=== PATIENT | male | born 1950 | race Caucasian/White ===

== ENCOUNTER 2017-08-03 19:32 | Emergency (ER) | payer MEDICARE ==
[~2017-08-03] VITALS: Ht 182.9 cm; Wt 94.9 kg
[2017-08-03 19:38] VITALS: BP 148/77; PULSE 75; RESP 20; TEMP 98.4; O2SAT 95
[2017-08-03] MEDS ORDERED: VENTAER INH (19:58)
[2017-08-03] MEDS ORDERED: CETI10CA3 PO (19:58)
[2017-08-03] MEDS ORDERED: [UNRECOGNIZED DRUG - CODE] (19:58)
--- NOTE | 2017-08-03 20:40 | PD ---
HPI Chief Complaint: Cold / Flu Symptoms Time Seen by Provider: 20:13 Travel History International Travel<30 days: No Contact w/Intl Traveler<30days: No Traveled to known affect area: No History of Present Illness HPI 66-year-old male complains coughing wheezing and shortness of breath. Patient started with nasal congestion and sinus pressure 4 days ago. Patient started having wheezing, dry cough and shortness of breath subsequently. Patient has history of asthma and has inhaler at home. Patient denies any chest pain. Patient states that he has low-grade fever at home. Patient denies any nausea vomiting diarrhea. PFSH Past Medical History Asthma: Yes Diminished Hearing: Yes Immunizations Current: Yes Tetanus Vaccination: < 5 Years Influenza Vaccination: Yes Social History Alcohol Use: Yes (DAILY, 1-2 BEERS) Tobacco Use: No Substance Use: No Allergies-Medications (Allergen,Severity, Reaction): Coded Allergies: No Known Allergies (Unverified , 08/03/17) Reported Meds & Prescriptions Reported Meds & Active Scripts Active Reported [Ics-Inh] Ventolin Hfa 18 GM Inh (Albuterol Sulfate) 90 Mcg/Act Aer 2 Puff INH Q4-6H PRN Zyrtec (Cetirizine HCl) 10 Mg Capsule 10 Mg PO DAILY Review of Systems General / Constitutional: No: Fever Eyes: No: Visual changes HENT: No: Headaches Cardiovascular: No: Chest Pain or Discomfort Respiratory: Positive: Cough, Shortness of Breath, Wheezing Gastrointestinal: No: Abdominal Pain Genitourinary: No: Dysuria Musculoskeletal: No: Pain Skin: No Rash Neurologic: No: Weakness Psychiatric: No: Depression Endocrine: No: Polydipsia Hematologic/Lymphatic: No: Easy Bruising Physical Exam Narrative GENERAL: Well-nourished, well-developed patient. SKIN: Focused skin assessment warm/dry. HEAD: Normocephalic. EYES: No scleral icterus. No injection or drainage. NECK: Supple, trachea midline. No JVD or lymphadenopathy. CARDIOVASCULAR: Regular rate and rhythm without murmurs, gallops, or rubs. RESPIRATORY: Breath sounds equal bilaterally. No accessory muscle use. Patient has moderate expiratory wheezes bilaterally. No rhonchi. GASTROINTESTINAL: Abdomen soft, non-tender, nondistended. MUSCULOSKELETAL: No cyanosis, or edema. BACK: Nontender without obvious deformity. No CVA tenderness. Neurologic exam normal. Data Data Last Documented VS Vital Signs Date Time Temp Pulse Resp B/P (MAP) Pulse Ox O2 Delivery O2 Flow Rate FiO2 08/03/17 19:54 75 20 95 Room Air 08/03/17 19:38 98.4 148/77 (100) Orders Orders Chest, Single Ap (08/03/17 20:37) Albuterol-Ipratropium Neb (Duoneb Neb) (08/03/17 20:45) Dexamethasone Inj (Decadron Inj) (08/03/17 20:45) MDM Medical Decision Making Medical Screen Exam Complete: Yes Emergency Medical Condition: Yes Differential Diagnosis Differential diagnosis including acute exacerbation of asthma, bronchitis, pneumonia. Narrative Course 66-year-old male with coughing congestion and wheezing. History of asthma. Albuterol with Atrovent unit dose treatment 3. Decadron 8 mg IM. Zithromax 500 mg p.o. given. Diagnosis Primary Impression: Acute severe exacerbation of asthma Additional Impression: Bronchitis Patient Instructions: General Instructions Additional Instructions: Continue albuterol inhaler as needed. Zithromax as directed. Follow-up with personal physician. Return if worse. Med/Other Pt SpecificInfo: Prescription(s) given Scripts Prednisone (Prednisone) 20 Mg Tab 20 MG PO DAILY, #6 TAB 0 Refills Prov: Daniel Manning MD 08/03/17 Azithromycin (Zithromax Z-Pasha) 250 Mg Dspk 250 MG PO DIRECTED for Infection, #1 DSPK 0 Refills 500 MG (2 tabs) day 1, then 1 tab days 2-5. Prov: Daniel Manning MD 08/03/17 Disposition: 01 DISCHARGE HOME Condition: Stable Daniel Manning MD Aug 03, 2017 20:40
[2017-08-03] MEDS ORDERED: DEXAMETHASONE SOD PHOS 4 MG/ML VIAL IM ONE (20:45)
[2017-08-03] MEDS: RESP: ALBUTEROL 2.5 MG/IPRATROPIUM 0.5 MG NEB (SCH) INH ×3 (21:23→21:40)
[2017-08-03] MEDS ORDERED: PRED20 PO (21:41)
[2017-08-03] MEDS ORDERED: ZITHTAB PO (21:41)
[2017-08-03] MEDS ORDERED: AZITHROMYCIN 250 MG TAB PO ONE (21:45)
--- NOTE | 2017-08-03 21:52 | RADRPT ---
EXAM DATE/TIME: 08/03/2017 20:50 [facility] COMPARISON: No previous studies available for comparison. INDICATIONS : Chest congestion and shortness of breath. MEDICAL HISTORY : None. SURGICAL HISTORY : None. ENCOUNTER: Initial ACUITY: 4 - 6 days PAIN SCORE: 0/10 LOCATION: Bilateral chest FINDINGS: A single view of the chest demonstrates the lungs to be symmetrically aerated without evidence of mas s, infiltrate or effusion. The cardiomediastinal contours are unremarkable. Osseous structures are intact. CONCLUSION: No acute disease. Juan Jose Villa MD on August 03, 2017 at 21:50 Board Certified Radiologist. This report was verified electronically.
== END 2017-08-03 22:03 | disposition home or self-care (01) ==
LOC: PHED 19:32
DX: J45.901 Unspecified asthma with (acute) exacerbation (principal); Z79.899 Other long term (current) drug therapy
CPT/HCPCS: 71045; 94640; 94664; 96372; 99284; J1100

== ENCOUNTER 2017-08-10 14:27 | Emergency (ER) | payer MEDICARE ==
[~2017-08-10] VITALS: Ht 180.3 cm; Wt 95.0 kg
[~2017-08-10 14:27] MED LIST: CETI10CA3 PO; PRED20 PO; VENTAER INH; ZITHTAB PO; [UNRECOGNIZED DRUG - CODE]
[2017-08-10 14:28] VITALS: BP 126/79; PULSE 66; RESP 18; TEMP 98.3; O2SAT 95
[2017-08-10] MEDS ORDERED: predniSONE 50 MG TAB PO ONE (15:45)
--- NOTE | 2017-08-10 15:45 | PD ---
HPI Chief Complaint: Respiratory Symptoms Time Seen by Provider: 15:32 Travel History International Travel<30 days: No Contact w/Intl Traveler<30days: No Traveled to known affect area: No History of Present Illness HPI 66yo M with no PMH here requesting another antibiotics. Pt was seen here on and diagnosed with bronchitis. He was discharged with prednisone and z- jesica. Said his cough did improve but not enough. Said he gets bronchitis every year and he usually needs another dose of antibiotics. Said he has some chest tightness with coughing. Denies any chest pain, sob, n/v, abdominal pain, focal weakness or numbness or smoking cig. PFSH Past Medical History Asthma: Yes Diminished Hearing: Yes Immunizations Current: Yes Tetanus Vaccination: > 5 Years Influenza Vaccination: Yes Social History Alcohol Use: Yes (DAILY, 1-2 BEERS) Tobacco Use: No Substance Use: No Allergies-Medications (Allergen,Severity, Reaction): Coded Allergies: No Known Allergies (Unverified , 08/10/17) Reported Meds & Prescriptions Reported Meds & Active Scripts Active Reported [Ics-Inh] Ventolin Hfa 18 GM Inh (Albuterol Sulfate) 90 Mcg/Act Aer 2 Puff INH Q4-6H PRN Zyrtec (Cetirizine HCl) 10 Mg Capsule 10 Mg PO DAILY Review of Systems Except as stated in HPI: all other systems reviewed are Neg Physical Exam Narrative GENERAL: 66yo M not in distress. SKIN: Focused skin assessment warm/dry. HEAD: Atraumatic. Normocephalic. EYES: Pupils equal and round. No scleral icterus. No injection or drainage. ENT: No nasal bleeding or discharge. Mucous membranes pink and moist. NECK: Trachea midline. No JVD. CARDIOVASCULAR: Regular rate and rhythm. No murmur appreciated. RESPIRATORY: No accessory muscle use. Expiratory wheezing bilaterally. GASTROINTESTINAL: Abdomen soft, non-tender, nondistended. MUSCULOSKELETAL: No obvious deformities. No clubbing. No cyanosis. No edema. NEUROLOGICAL: Awake and alert. No obvious cranial nerve deficits. Motor grossly within normal limits. Normal speech. PSYCHIATRIC: Appropriate mood and affect; insight and judgment normal. Data Data Last Documented VS Vital Signs Date Time Temp Pulse Resp B/P (MAP) Pulse Ox O2 Delivery O2 Flow Rate FiO2 08/10/17 15:18 Room Air 08/10/17 14:28 98.3 66 18 126/79 (95) 95 Orders Orders Electrocardiogram (08/10/17 15:39) Chest, Single Ap (08/10/17 15:39) Albuterol-Ipratropium Neb (Duoneb Neb) (08/10/17 15:45) Prednisone (Deltasone) (08/10/17 15:45) MDM Medical Decision Making Medical Screen Exam Complete: Yes Emergency Medical Condition: Yes Interpretation(s) EKG: NSR 60bpm. Normal axis. No ST segment elevation or depression Differential Diagnosis URI vs. bronchitis vs. Pneumonia Narrative Course 66yo well appearing male here with persistent cough for 2 weeks. Pt has wheezing on exam and said he has bronchitis every year and just needs another antibiotics. Pt is adament that he does not need anything else. Pt given duonebs x3 and prednisone. Has chest tightness only with cough. Denies any chest pain and EKG is normal. Pt does not want any blood work. Pt given duonebs x3, prednisone 50mg PO. CXR showed no infiltrate or effusion. I explain to pt that I think this is viral and he does not need antibiotics. However, after prolong explanation, pt is insistent he needs a stronger antibiotics and has been having this every year for 30 years. He is feeling better and I finally agree to write him a prescription and explain that it is unlikely to help but he can use it if he is insistent on it. Return precautions given. Diagnosis Primary Impression: Bronchitis Patient Instructions: General Instructions Departure Forms: Tests/Procedures Additional Instructions: Please follow up with your primary care physician in 3-7 days. Return to the ED if symptoms worsen. Med/Other Pt SpecificInfo: Prescription(s) given Scripts Doxycycline Hyclate (Doxycycline Hyclate) 100 Mg Cap 100 MG PO BID for Infection for 5 Days, #10 CAP 0 Refills Prov: Aubrie Juarez DO 08/10/17 Prednisone (Prednisone) 20 Mg Tab 40 MG PO DAILY, #10 TAB 0 Refills Take 40 mg (2 tablets) daily for 5 days Prov: Aubrie Juarez DO 08/10/17 Albuterol 18 GM Inh (Ventolin Hfa 18 GM Inh) 90 Mcg/Act Aer 2 PUFF INH Q4H Y for SHORTNESS OF BREATH, #1 INHALER 0 Refills Prov: Aubrie Juarez DO 08/10/17 Disposition: 01 DISCHARGE HOME Condition: Stable Aubrie Juarez DO Aug 10, 2017 15:45
[2017-08-10] MEDS: RESP: ALBUTEROL 2.5 MG/IPRATROPIUM 0.5 MG NEB (SCH) INH ×2 (16:04→16:06)
--- NOTE | 2017-08-10 16:57 | RADRPT ---
EXAM DATE/TIME: 08/10/2017 15:52 [facility] COMPARISON: CHEST SINGLE AP, August 03, 2017, 20:50. INDICATIONS : Short of breath, cough MEDICAL HISTORY : asthma SURGICAL HISTORY : None. ENCOUNTER: Initial ACUITY: 2 weeks PAIN SCORE: 0/10 LOCATION: Bilateral chest FINDINGS: A single view of the chest demonstrates the lungs to be symmetrically aerated without evidence of mas s, infiltrate or effusion. The cardiomediastinal contours are unremarkable. Osseous structures are intact. CONCLUSION: No acute disease. Panda Gibson MD FACR on August 10, 2017 at 16:54 Board Certified Radiologist. This report was verified electronically.
[2017-08-10] MEDS ORDERED: DOXY100C PO (17:15)
[2017-08-10] MEDS ORDERED: PRED20 PO (17:15)
[2017-08-10] MEDS ORDERED: VENTAER INH (17:15)
[2017-08-10 17:29] VITALS: BP 131/67
[2017-08-10] MEDS ORDERED: DOXYCYCLINE HYCLATE 100 MG CAP PO ONE (17:30)
--- NOTE | 2017-08-11 19:38 | EKG ---
Date Performed: 08/10/2017 Time Performed: 15:52:20 PTAGE: 66 years EKG: Sinus rhythm NORMAL ECG NO PREVIOUS TRACING DOCTOR: Michael Masters Interpretating Date/Time 08/11/2017 19:37:20
== END 2017-08-10 17:36 | disposition home or self-care (01) ==
LOC: PHED 14:27
DX: J40 Bronchitis, not specified as acute or chronic (principal)
CPT/HCPCS: 71045; 93005; 94640; 94664; 99284; J7512